=== PATIENT | female | born 2000 | race Caucasian/White ===

== ENCOUNTER 2023-02-13 22:41 | Outpatient (REF) | payer BC, SELFPAY ==
[2023-02-17 15:09] LABS: Age Gdln ACOG Testing Note (.); IGP, rfx Aptima HPV ASCU Note (.)
== END 2023-02-13 22:42 | disposition home or self-care (01) ==
LOC: LAB 22:41
PROVIDERS: Visit Provider Obstetrics & Gynecology
DX: Z01.419 Encounter for gynecological examination (general) (routine) without abnormal findings (principal)
CPT/HCPCS: G0145

== ENCOUNTER 2024-02-21 20:23 | Outpatient (REF) | payer BC, SELFPAY ==
--- OUTSIDE RECORDS SUMMARY | 2024-02-21 20:28 | XMS_ITS | CCD ---
Author Organization [facility] Care Team Providers Care Lens Cutter Name Role Phone Argelia Klein Unavailable DR ELVIRA WALLER Admitting Unavailable DR ELVIRA WALLER Attending Unavailable DR ELVIRA WALLER Consulting Unavailable Salud Russ Unavailable ELVIRA WALLER DEE Referring Unavailable AURORA FERNÁNDEZ Primary Care Unavailable Delon Stockton MD Primary Care Provider ELVIRA WALLER Attending Unavailable HALEY STRONG Attending Unavailable HALEY STRONG Attending Unavailable HALEY STRONG Attending Unavailable HALEY STRONG Attending Unavailable Medications Current Medications Medication Drug Class(es) Dates Sig (Normalized) Sig (Original) adapalene 0.001 mg/mg / benzoyl peroxide 0.025 mg/mg topical gel (3 sources) Retinoid Start: 02-13-2023 End: 02-13-2024 Adapalene-Benzoyl Peroxide (Epiduo) 0.1-2.5 % gel Indications: Well woman exam with routine gynecological exam , Other acne Apply 1 application topically at bedtime 45 g 3 02/13/2023 02/13/2024 Active clindamycin 0.01 mg/mg topical gel (8 sources) Lincosamide Antibacterial Start: 09-25-2023 End: 01-19-2024 clindamycin (Clindagel) 1 % gel Indications: Acne vulgaris Apply thin layer to face, once daily in the morning 60 g 11 01/19/2024 Active dextromethorphan hydrobromide 15 mg / guaiFENesin 400 mg / pseudoephedrine hydrochloride 60 mg oral tablet (1 source) alpha-Adrenergic Agonist, Uncompetitive Q-hpsdmm-X-aspartat e Receptor Antagonist, Sigma-1 Agonist Start: 08-15-2022 take 4 tablets by mouth every twenty-four hours as needed Capmist DM 60-15-400 MG as needed Orally every 4-6 hours as needed, max 4 tablets in 24 hours for 5 days Aug, Active fluticasone propionate 0.05 mg/actuat metered dose nasal spray (3 sources) Corticosteroid Start: 12-13-2018 take 1 spray(s) nasal route once daily Flonase Allergy Relief 50 MCG/ACT 1 spray in each nostril Nasally Once a day for 14 days Aug, Active spironolactone 50 mg oral tablet (11 sources) Aldosterone Antagonist Start: 12-04-2023 End: 01-19-2024 take 1 tablet by mouth once daily spironolactone (Aldactone) 50 MG tablet Indications: Acne vulgaris Take 1 tablet (50 mg) by mouth Daily 30 tablet 1 01/19/2024 Active Start: 09-25-2023 End: 01-19-2024 take 1 tablet by mouth once daily spironolactone (Aldactone) 100 MG tablet Indications: Acne vulgaris Take 1 tablet, by mouth, once daily, 30 days 30 tablet 3 09/25/2023 01/19/2024 Discontinued (Dose adjustment) triamcinolone acetonide 1 mg/ml topical cream (5 sources) Corticosteroid Start: 01-19-2024 triamcinolone (Kenalog) 0.1 % cream Indications: Other specified dermatitis Apply to affected areas, up to twice a day when flared, do not use one the face, groin, or underarms, 30 day supply 80 g 11 01/19/2024 Active Completed/Discontinued Medications Medication Drug Class(es) Dates Sig (Normalized) Sig (Original) acetaminophen 300 mg / codeine phosphate 30 mg oral tablet (1 source) Opioid Agonist Acetaminophen-Co de ine 300-30 MG take 1 tablet by mouth every 4 to 6 hours if needed for pain for 7 days Oral for 3 Days Not-Taking amoxicillin 875 mg oral tablet (2 sources) Penicillin-class Antibacterial Start: 12-13-2018 take 1 tablet by mouth every twelve hours Amoxicillin 875 MG 1 tablet Orally Twice a day for 10 day(s) Dec, Not-Taking Ethinyl Estradiol / norgestimate (2 sources) Progestin, Estrogen Ortho Tri-Cy clen Lo Not-Taking ibuprofen 600 mg oral tablet (1 source) Nonsteroidal Anti-inflammatory Drug take 1 tablet by mouth every six hours for pain Ibuprofen 600 MG take 1 tablet by mouth every 6 hours if needed for pain Oral for 7 Days Not-Taking RA Pain Relief Acetaminophen 500 MG (1 source) RA Pain Relief Acetaminophen 500 MG take 1 CAPLET every 6 hours if needed for pain Oral for 7 Days Not-Taking triazolam 0.25 mg oral tablet (1 source) Benzodiazepine take 1 tablet by mouth every hour Triazolam 0.25 MG take 1 tablet by mouth 1 hour prior to appointment Oral for 1 Days Not-Taking Problems Active Problems Problem Classification Problem Date Documented Date Episodic/Chronic Allergic reactions (2 sources) Eczema; Translations: [Other specified dermatitis] 01-19-2024 Episodic Immunizations and screening for infectious disease (2 sources) Contact with and (suspected) exposure to other viral communicable diseases; Translations: [Encounter for screening for human papillomavirus (HPV)] Onset: 01-20-2021 Resolved: 01-20-2021 Episodic Other endocrine disorders (2 sources) Endocrine disorder, unspecified; Translations: [Endocrine disorder, unspecified] Onset: 12-12-2022 Episodic Other screening for suspected conditions (not mental disorders or infectious disease) (4 sources) Encounter for screening for malignant neoplasm of cervix; Translations: [ENC SCREENING MALIG NEOPLASM CERV] Onset: 12-27-2021 Episodic Other skin disorders (2 sources) Acne vulgaris; Translations: [Acne vulgaris] 01-19-2024 Episodic Other upper respiratory infections (3 sources) Acute upper respiratory infection, unspecified; Translations: [Acute pharyngitis, unspecified] Onset: 01-20-2021 Resolved: 01-20-2021 Episodic Past or Other Problems Problem Classification Problem Date Documented Da te Episodic/Chronic Unclassified (1 source) Contact with and (suspected) exposure to covid-19 Z20.822 Results Test Name Value Interpretation Reference Range Facility Cytology Cervical or vaginal smear or scraping studyOrdered By: Ary Velasquez on 02-13-2023 [facility] E[facility] 12-13-2022 Estradiol 58.0 pg/mL Normal [facility] Comment on above: Result Comment: FEMALES: Normally menstruating Luteal phase 60-232 Follicular phase 31-90 Midcycle phase 60-533 Postmenopausal (untreated) <138 Fulvestrant treatment will show an increased estradiol concentration with this methodology. Alternate methodologies are available upon request. Performed By: #### F T4, PROG, E2 #### [address] [address] Audio/Visual Operator: Arturo Gibbs MD #### TSH, CDP #### [address] [place], [place] [id number] Audio/Visual Operator: Lj Rivers MD Progesteroneon 319 Progesterone 1.28 ng/mL Normal [facility] Comment on above: Result Comment: Female: Follicular phase <0.19 ng/mL Ovulation phase 0.06-4.14 ng/mL Luteal phase 4.11-14.5 ng/mL Postmenopausal <0.13 ng/mL Performed By: #### F T4, PROG, E2 #### [address] [address] Audio/Visual Operator: Arturo Gibbs MD #### TSH, CDP #### [address] [place] [address] Audio/Visual Operator: Lj Rivers MD Thyroxine, Freeon 12-13-2022 Thyroxine, Free 1.0 ng/dL Normal 0.93-1.70 [facility] Comment on above: Performed By: #### F T4, PROG, E2 #### [address] [address] Audio/Visual Operator: Arturo Gibbs MD #### TSH, CDP #### [address] [place] [address] Audio/Visual Operator: Lj Rivers MD CBC with Diffon 12-12-2022 Abs. Basophil <0.03 Normal 0.00-0.20 [facility] Comment on above: Performed By: #### F T4, PROG, E2 #### [address] [address] Audio/Visual Operator: Arturo Gibbs MD #### TSH, CDP #### [address] [place] [id number] Audio/Visual Operator: Lj Rivers MD Abs.Imm.Granulocyte <0.03 Normal 0.00-0.30 [facility] Comment on above: Performed By: #### F T4, PROG, E2 #### [address] [id number] Audio/Visual Operator: Arturo Gibbs MD #### TSH, CDP #### [address] [place] [id number] Audio/Visual Operator: Lj Rivers MD Abs.Neutrophil (Seg) 3.80 k/uL Normal 1.50-8.10 [facility] Comment on above: Performed By: #### F T4, PROG, E2 #### [address] [id number] Audio/Visual Operator: Arturo Gibbs MD #### TSH, CDP #### [address] [place] [phone] Audio/Visual Operator: Lj Rivers MD Basophils/100 WBC (Bld) 0 % Normal 0-2 [facility] Comment on above: Performed By: #### F T4, PROG, E2 #### [address] [id number] Audio/Visual Operator: Arturo Gibbs MD #### TSH, CDP #### [address] [place] [id number] Audio/Visual Operator: Lj Rivers MD Eosinophils (Bld) [#/Vol] 0.17 10*3/uL Normal 0.00-0.44 [facility] Comment on above: Performed By: #### F T4, PROG, E2 #### [address] [address] Audio/Visual Operator: Arturo Gibbs MD #### TSH, CDP #### [address] [place], [place] [phone] Audio/Visual Operator: Lj Rivers MD Eosinophils/100 WBC (Bld) 3 % Normal 1-4 [facility] Comment on above: Performed By: #### F T4, PROG, E2 #### [address] [id number] Audio/Visual Operator: Arturo Gibbs MD #### TSH, CDP #### [address] [place], [place] [phone] Audio/Visual Operator: Lj Rivers MD Erythrocyte distribution width (RBC) [Ratio] 11.8 % Normal 11.8-14.4 [facility] Comment on above: Performed By: #### F T4, PROG, E2 #### [address] [id number] Audio/Visual Operator: Arturo Gibbs MD #### TSH, CDP #### [address] [place] [address] Audio/Visual Operator: Lj Rivers MD Hematocrit (Bld) [Volume fraction] 36.4 % Normal 36.3-47.1 [facility] Comment on above: Performed By: #### F T4, PROG, E2 #### [address] [id number] Audio/Visual Operator: Arturo Gibbs MD #### TSH, CDP #### [address] [place] [address] Audio/Visual Operator: Lj Rivers MD Hemoglobin (Bld) [Mass/Vol] 12.2 g/dL Normal 11.9-15.1 [facility] Comment on above: Performed By: #### F T4, PROG, E2 #### [address] [id number] Audio/Visual Operator: Arturo Gibbs MD #### TSH, CDP #### [facility] [address] [place], [place] [id number] Audio/Visual Operator: Lj Rivers MD Immature granulocytes/100 WBC (Bld) 0 % Normal 0 [facility] Comment on above: Performed By: #### F T4, PROG, E2 #### [address] [address] Audio/Visual Operator: Arturo Gibbs MD #### TSH, CDP #### [facility] [address] [place], [place] [phone] Audio/Visual Operator: Lj Rivers MD Lymphocytes (Bld) [#/Vol] 2.20 10*3/uL Normal 1.10-3.70 [facility] Comment on above: Performed By: #### F T4, PROG, E2 #### [address] [address] Audio/Visual Operator: Arturo Gibbs MD #### TSH, CDP #### [address] [place] [id number] Audio/Visual Operator: Lj Rivers MD Lymphocytes/100 WBC (Bld) 33 % Normal 24-43 [facility] Comment on above: Performed By: #### F T4, PROG, E2 #### [address] [address] Audio/Visual Operator: Arturo Gibbs MD #### TSH, CDP #### [address] [place] [id number] Audio/Visual Operator: Lj Rivers MD MCH (RBC) [Entitic mass] 31.2 pg Normal 25.2-33.5 [facility] Comment on above: Performed By: #### F T4, PROG, E2 #### [address] [address] Audio/Visual Operator: Arturo Gibbs MD #### TSH, CDP #### [address] [place] [phone] Audio/Visual Operator: Lj Rivers MD MCHC (RBC) [Mass/Vol] 33.5 g/dL Normal 28.4-34.8 [facility] Comment on above: Performed By: #### F T4, PROG, E2 #### [address] [address] Audio/Visual Operator: Arturo Gibbs MD #### TSH, CDP #### [address] [place] [phone] Audio/Visual Operator: Lj Rivers MD MCV (RBC) [Entitic vol] 93.1 fL Normal 82.6-102.9 [facility] Comment on above: Performed By: #### F T4, PROG, E2 #### [address] [id number] Audio/Visual Operator: Arturo Gibbs MD #### TSH, CDP #### [address] [place] [id number] Audio/Visual Operator: Lj Rivers MD Monocytes (Bld) [#/Vol] 0.49 10*3/uL Normal 0.10-1.20 [facility] Comment on above: Performed By: #### F T4, PROG, E2 #### [address] [address] Audio/Visual Operator: Arturo Gibbs MD #### TSH, CDP #### [address] [place] [phone] Audio/Visual Operator: Lj Rivers MD Monocytes/100 WBC (Bld) 7 % Normal 3-12 [facility] Comment on above: Performed By: #### F T4, PROG, E2 #### [address] [address] Audio/Visual Operator: Arturo Gibbs MD #### TSH, CDP #### [address] [place], [place] [address]3 Audio/Visual Operator: Lj Rivers MD Neutrophil (Seg) 57 % Normal 36-65 [facility] Comment on above: Performed By: #### F T4, PROG, E2 #### [address] [address] Audio/Visual Operator: Arturo Gibbs MD #### TSH, CDP #### [address] [place] [address] Audio/Visual Operator: Lj Rivers MD NRBC Automated 0.0 per 100 WBC Normal 0.0 [facility] Comment on above: Performed By: #### F T4, PROG, E2 #### [address] [address] Audio/Visual Operator: Arturo Gibbs MD #### TSH, CDP #### [address] [place] [address] Audio/Visual Operator: Lj Rivers MD Platelet mean volume (Bld) [Entitic vol] 10.4 fL Normal 8.1-13.5 [facility] Comment on above: Performed By: #### F T4, PROG, E2 #### [address] [address] Audio/Visual Operator: Arturo Gibbs MD #### TSH, CDP #### [address] [place], [place] [phone] Audio/Visual Operator: Lj Rivers MD Platelets (Bld) [#/Vol] 218 10*3/uL Normal 138-453 [facility] Comment on above: Performed By: #### F T4, PROG, E2 #### [address] [address] Audio/Visual Operator: Arturo Gibbs MD #### TSH, CDP #### [address] [place] [address] Audio/Visual Operator: Lj Rivers MD RBC (Bld) [#/Vol] 3.91 10*6/uL Low 3.95-5.11 [facility] Comment on above: Performed By: #### F T4, PROG, E2 #### [address] [id number] Audio/Visual Operator: Arturo Gibbs MD #### TSH, CDP #### [facility] [address] [place] [address] [place] [address] Audio/Visual Operator: Lj Rivers MD WBC (Bld) [#/Vol] 6.7 10*3/uL Normal 3.5-11.3 [facility] Comment on above: Performed By: #### F T4, PROG, E2 #### [address] [id number] Audio/Visual Operator: Arturo Gibbs MD #### TSH, CDP #### [address] [place] [address] Audio/Visual Operator: Lj Rivers MD Thyroid Stim. Horm.on 2022 Thyroid Stim. Horm. 3.28 uIU/mL Normal 0.30-5.00 [facility] Comment on above: Performed By: #### F T4, PROG, E2 #### [address] [id number] Audio/Visual Operator: Arturo Gibbs MD #### TSH, CDP #### [facility] [address] [place] [address] [place] [address] Audio/Visual Operator: Lj Rivers MD COVID Quick Testingon 2022 Result Negative [facility] Other Quick Strepon 08-15-2022 S. pyogenes Org specific cx Ql (Throat) Negative [facility] Other Quick Strep [facility] Other PAP ACOG PANEL 2: 21 to 29on 01-05-2022 . . Normal [facility] Comment on above: Performed By: #### 4 [id number] #### [facility] [address] [place] [address] Bahena Age Gdln ACOG Testing - [facility] Comment on above: Performed By: #### 4 [id number] #### [facility] [address] [place] [address] Bahena DIAGNOSIS: Comment [facility] Comment on above: Result Comment: NEGA TIVE FOR INTRAEPITHELIAL LESION OR MALIGNANCY. Performed By: #### 4 [id number] #### [facility] [address] [place] [address] Bahena Methodology: Comment [facility] Comment on above: Result Comment: This liquid based ThinPrep(R) pap test was screened with the use of an image guided system. Performed By: #### 4 [id number] #### [facility] [address] [place] [address] Bahena Note: Comment [facility] Comment on above: Result Comment: The Pap smear is a screening test designed to aid in the detection of premalignant and malignant conditions of the uterine cervix. It is not a diagnostic procedure and should not be used as the sole means of detecting cervical cancer. Both false-positive and false-negative reports do occur. . Performed By: #### 4 [id number] #### [facility] [address] [place] [address] Bahena Performed by: Comment Normal [facility] Comment on above: Result Comment: Yancy Lew, Energy Manager (ASCP) Performed By: #### 4 [id number] #### [facility] [address] [place] [address] Bahena Reflex Criteria: Comment [facility] Comment on above: Result Comment: The HPV DNA reflex criteria were not met with this specimen result therefore, no HPV testing was performed. . Performed By: #### 4 [id number] #### [facility] [address] [place] [address] Bahena Specimen adequacy: Comment Normal [facility] Comment on above: Result Comment: Sati sfactory for evaluation. Endocervical and/or squamous metaplastic cells (endocervical component) are present. Performed By: #### 4 [id number] #### [facility] [address] [place] [address] Bahena COVID Quick Testingon 2020 Result Negative [facility] Other Vital Signs Date Time Vital Sign Value Performing Clinician Facility 02-21-2024 16:27-0500 Body mass index (BMI) [Ratio] 22.68 kg/m2 Elvira Sridhar DO Work Phone: [facility] 02-21-2024 16:27-0500 Body weight 65.68 kg Elvira Sridhar DO Work Phone: [facility] 02-21-2024 16:27-0500 Diastolic blood pressure 68 mm[Hg] Elvira Sridhar DO Work Phone: [facility] 02-21-2024 16:27-0500 Systolic blood pressure 106 mm[Hg] Elvira Sridhar DO Work Phone: [facility] 08-15-2022 17:30-0400 Body height 165.1 cm Salud Russ Other [facility] Other 08-15-2022 17:30-0400 Body mass index (BMI) [Ratio] 24.13 kg/m2 Salud Russ Other [facility] Other 08-15-2022 17:30-0400 Body temperature 98.8 [degF] Salud Russ Other [facility] Other 08-15-2022 17:30-0400 Body weight 65.77 kg Salud Russ Other [facility] Other 08-15-2022 17:30-0400 Respiratory rate 18 /min Salud Russ Other [facility] Other 08-15-2022 17:30-0400 SaO2% (BldA) [Mass fraction] 99 % Salud Russ Other [facility] Other 01-20-2021 18:15-0500 Body height 170.18 cm Argelia Klein Other [facility] Other 01-20-2021 18:15-0500 Body mass index (BMI) [Ratio] 23.49 kg/m2 Argelia Merrittmond Other [facility] Other 01-20-2021 18:15-0500 Body temperature 97.8 [degF] Argelia Klein Other [facility] Other 01-20-2021 18:15-0500 Body weight 68.04 kg Argelia Klein Other [facility] Other 01-20-2021 18:15-0500 Respiratory rate 18 /min Argelia Klein Other [facility] Other 01-20-2021 18:15-0500 SaO2% (BldA) [Mass fraction] 98 % Argelia Klein Other [facility] Other Encounters Encounter Date Encounter Type Care Provider Facility Start: 02-21-2024 End: 02-21-2024 Patient encounter procedure Elvira Alcocero DO Work Phone: [facility] Work Phone: Start: 02-21-2024 End: 02-21-2024 Periodic preventive med est patient 18-39 yrs Elvira Alcocero DO Work Phone: [facility] Comment on above: Well woman exam with routine gynecological exam Start: 02-21-2024 End: 02-21-2024 Bamboo flowsheet Elvira Sridhar DO Work Phone: [facility] Start: 02-21-2024 End: 02-21-2024 Bamboo flowsheet Elvira Sridhar DO Work Phone: [facility] Start: 01-19-2024 End: 01-19-2024 Bamboo flowsheet Haley L Tae PA Work Phone: [facility] Start: 01-19-2024 End: 01-19-2024 Bamboo flowsheet Haley L Tae PA Work Phone: [facility] Start: 01-19-2024 End: 01-19-2024 Office outpatient visit 15 minutes Haley L Tae PA Work Phone: [facility] Comment on above: Acne vulgaris (Prima ry Dx); Other specified dermatitis Start: 01-19-2024 End: 01-19-2024 ambulatory HALEY L TAE Not Available Start: 09-25-2023 End: 09-25-2023 ambulatory HALEY L TAE Not Available Start: 06-26-2023 End: 06-26-2023 ambulatory HALEY L TAE Not Available Start: 03-28-2023 End: 03-28-2023 ambulatory HALEY L TAE Not Available Start: 02-13-2023 End: 02-13-2023 ambulatory ELVIRA WALLER Not Available Start: 12-12-2022 End: 12-13-2022 ambulatory [facility]ALL[facility] Start: 08-15-2022 End: 08-15-2022 ambulatory Salud Russ Other [facility] Other Start: 08-15-2022 Office outpatient vi sit 25 minutes Salud Russ [facility] Start: 12-27-2021 End: 12-27-[address] ELVIRA WALLER Facility: Start: 01-20-2021 End: 01-20-2021 ambulatory Argelia Klein Other [facility] Other Start: 01-20-2021 Office outpatient vi sit 15 minutes Argelia Klein [facility] Procedures Date Procedure Procedure Detail Performing Clinician Start: 02-13-2023 Cytp cerv/vag auto t hin layer prep mnl screen Elvira Waller DO Work Phone: Plan of Treatment Date Care Activity Detail Author Start: 01-21-2025 End: 01-21-2025 Patient encounter procedure 01/21/2025 7:40 AM EST Office Visit [facility] [address] [place] [address] Haley Strong PA [address] [place], [place] [id number] [facility] Start: 02-21-2024 End: 02-21-2024 Patient encounter procedure 02/21/2024 4:00 PM EST Office Visit [facility] [address] [place] [address] Elvira Waller, DO [address] [place] [address] [facility] Start: 01-19-2024 End: 01-19-2024 Patient encounter procedure 01/19/2024 7:50 AM EST Office Visit [facility] [address] [place] [address] Haley Strong PA [address] [place] [address] Arrived [facility] Comment on above: Arrived Cytology Cervical or vaginal smear or scraping study Pap Smear Pathology and Cytology Routine Well woman exam with routine gynecological exam Ordered: 02/21/2024 [facility] Work Phone: Comment on above: Ordered: 02/21/2024 Payers Date P[facility] Category [id number] 2000 Unknown [id number] [id number] 2000 Unknown [id number] 2.9 2000 Unknown [id number] [id number] 2000 Unknown [id number] 2.9 2000 Unknown [id number] [id number] 2000 Unknown [id number] [id number] 1978 Unknown [id number] [id number] 1959 [facility] CBKAN [id number] Social History Date Type Detail Facility Unknown if ever smoked [facility] Other Start: 09-25-2023 End: 01-19-2024 Sex Assigned At [place] [facility] Other Start: 03-28-2023 Tobacco smoking status VTIS Never smoked tobacco [facility] Start: 03-28-2023 Tobacco use and exposure Smokeless tobacco non-user [facility] Start: 09-25-2023 End: 01-19-2024 History of Social function [facility] Start: 2000 Sex assigned at Not on file [facility] History of Present illness Narrative 02-21-2024 IRINA Moy - 02/21/2024 4:00 PM EST Note Date & Type Note Facility 02-21-2024 History of Presen t illness Narrative Images from the original note were not included. Reason for Appointment: Patient ID: Eulalia Tobias is a 23 y.o. female who presents for Well Women Visit Patient presents today for Annual Exam. MEDICATIONS Current Outpatient Medications Medication Instructions clindamycin (Clindagel) 1 % gel Apply thin layer to face, once daily in the morning spironolactone (ALDACTONE) 50 mg, Oral, Daily triamcinolone (Kenalog) 0.1 % cream Apply to affected areas, up to twice a day when flared, do not use one the face, groin, or underarms, 30 day supply ALLERGIES No Known Allergies PROBLEMS Active Ambulatory Problems Diagnosis Date Noted No Active Ambulatory Problems Resolved Ambulatory Problems Diagnosis Date Noted No Resolved Ambulatory Problems No Additional Past Medical History HISTORY PAST MEDICAL HISTORY SOCIAL HISTORY No past medical history on file. Social History Tobacco Use Smoking status: Never Smokeless tobacco: Never Substance Use Topics Alcohol use: Not on file Drug use: Not on file FAMILY HISTORY No family history on file. SURGICAL HISTORY Past Surgical History: Procedure Laterality Date WISDOM TOOTH EXTRACTION wisdom teeth REVIEW OF SYSTEMS Review of Systems: Review of Systems Constitutional: Negative. HENT: Negative. Eyes: Negative. Respiratory: Negative. Cardiovascular: Negative. Gastrointestinal: Negative. Genitourinary: Negative. Musculoskeletal: Negative. Skin: Negative. Neurological: Negative. All other systems reviewed and are negative. Hematological: Negative. Endocrine: Negative. Allergic/Immunologic: Negative. OBJECTIVE Objective: Physical Exam Constitutional: Appearance: Normal appearance. Genitourinary: Genitourinary Comments: Fibrocystic changes, eczema bilaterl breast Right Adnexa: not tender and no mass present. Left Adnexa: not tender and no mass present. No cervical discharge. Breasts: Breasts are soft. Right: Skin change present. Left: Skin change present. HENT: Head: Normocephalic. Nose: Nose normal. Mouth/Throat: Mouth: Mucous membranes are moist. Cardiovascular: Rate and Rhythm: Normal rate. Pulmonary: Effort: Pulmonary effort is normal. Chest: Abdominal: General: Bowel sounds are normal. Palpations: Abdomen is soft. Musculoskeletal: General: Normal range of motion. Cervical back: Normal range of motion. Neurological: General: No focal deficit present. Mental Status: She is alert. Skin: General: Skin is warm and dry. Psychiatric: Mood and Affect: Mood normal. Vitals and nursing note reviewed. Exam conducted with a ux developer designer present. Vitals: Estimated body mass index is 22.68 kg/m as calculated from the following: Height as of 11/21/22: 5' 7 . Weight as of this encounter: 144 lb 12.8 oz. BP: 106/68 Patient's last menstrual period was 02/17/2024. ASSESSMENT & PLAN ICD-10-CM 1. Well woman exam with routine gynecological exam Z01.419 Pap Smear Annual Exam: Patient presents today for an annual exam. Patient states she is doing well and has no complaints. Pap was obtained without difficulty. No orders of the defined types were placed in this encounter. Follow Up: Patient is to return in one year for annual unless needed otherwise. Documented by IRINA Moy on behalf of: Elvira Waller DO documented in this encounter [facility] History of Present illness Narrative 01-19-2024 IRINA Garnett - 01/19/2024 7:50 AM EST Note Date & Type Note Facility 01-19-2024 History of Presen t illness Narrative Images from the original note were not included. Follow up Diagnosis: Acne Location: face Last visit: 4 months Symptoms: none Status: improved Current treatment: Spironolactone 50 mg daily (Started 04/01), Clindamycin gel Other Problem: itching , dry spot Location: right abdomen Duration: months Current treatment: Moisturizers All pertinent medical history, medications, and allergies were reviewed. General Exam: alert, oriented to person, place, and time, normal affect, well appearing Unaccompanied A focused exam completed based on patient reported problems, see below: 1. Acne vulgaris Head - Anterior (Face) Very mild, scattered comedones and inflammatory pustules. Improved since last visit Continue current treatment plan at this time. Patient may call for 100 mg dose of spironolactone if she starts to flare. Related Medications clindamycin (Clindagel) 1 % gel Apply thin layer to face, once daily in the morning spironolactone (Aldactone) 50 MG tablet Take 1 tablet (50 mg) by mouth Daily 2. Other specified dermatitis Right Abdomen (side) - Upper Single, small scaly erythematous plaque. Flaring today Discussed that atopic dermatitis is a chronic condition that can be controlled but not cured. Start TAC 0.1% cream bid prn when flared, hold if smooth/asymptomatic. Encouraged daily moisturizing and gentle cleansers to prevent flares. triamcinolone (Kenalog) 0.1 % cream - Right Abdomen (side) - Upper Apply to affected areas, up to twice a day when flared, do not use one the face, groin, or underarms, 30 day supply Next Visit: 1 year documented in this encounter [facility] Evaluation note 08-15-2022 Note Date & Type Note Facility 08-15-2022 Evaluation note Encounter Date Diagnosis Assessment Notes Aug, Sore throat (ICD-10 - J02.9) Aug, Viral upper respiratory infection (ICD-10 - J06.9) Advised patient that rapid COVID/Influenza A/B test and rapid Strep test was negative today. Advised patient that will treat as viral URI. Supportive care as directed, increase fluids and rest, Tylenol/Motrin as directed, rx of Capmist and Flonase, cool mist humidifier, throat lozenges. Discussed infection control practices such as good hand washing and mask wearing. Patient to follow up with PCP if symptoms persist or worsen despite treatment. Immediate eval for SOB, difficulty breathing, chest pain, fevers that do not break with antipyretic or any other concerning symptoms as reviewed on patient education handout. Patient verbalizes understanding and is agreeable to treatment plan. Patient left in stable condition Aug, Contact with and (suspected) exposure to covid-19 (ICD-10 - Z20.822) 2nd Watch Other Evaluation note 01-20-2021 Note Date & Type Note Facility 01-20-2021 Evaluation note Encounter Date Diagnosis Assessment Notes Jan, Contact with and (suspected) exposure to other viral communicable diseases (ICD-10 - Z20.828) Jan, Viral upper respiratory illness (ICD-10 - J06.9) Drink plenty fluids, get plenty of rest. Take Tylenol or Motrin as needed for aches pains or fevers. Follow-up with your family physician if no improvement in 2 to 3 days. Jan, Other Additional time spent conducting pre-visit phone call, screening for symptoms, instructions on social distancing, application and removal of PPE, and cleaning of examination room, equipment and supplies was preformed. Patient education given for testing methodology and results. Patient care instructions given in writting by [facility] document. 2nd Watch Other Evaluation note Note Date & Type Note Facility Evaluation note Diagnosis Acne vulgaris- Primary Other acne Other specified dermatitis documented in this encounter [facility] Evaluation note Note Date & Type Note Facility Evaluation note Diagnosis Well woman exam with routine gynecological exam Routine gynecological examination documented in this encounter [facility] History general Narrative - Reported Note Date & Type Note Facility History general Narrative - Reported Type Surgical History wisdom teeth 2nd Watch Other Summary Purpose Family History No Family History Records FoundNo Family History Records FoundNo Family History Records Found Advance Directives No Advanced Directives Records FoundNo Advanced Directives Records FoundNo Advanced Directives Records Found Additional Source Comments REASON FOR VISIT (unrecogniz ed section and content) Reason Comments Acne Reason Comments Well Women Visit INFORMATION SOURCE (unrecogn ized section and content) DATE CREATED AUTHOR 01/06/2022 [facility] DATE CREATED AUTHOR AUTHOR'S ORGANIZ ATION 12/13/2022 [facility] DATE CREATED AUTHOR AUTHOR'S ORGANIZ ATION 01/21/2024 [facility] EPIC Care Teams (unrecognized sec tion and content) Lens Cutter Relationship Specialty Start Date End Date Delon Stockton MD [address] [place] [address] PCP - General Internal Medicine 11/21/22 Lens Cutter Relationship Specialty Start Date End Date Delon Stockton MD [address] [id number] PCP - General Internal Medicine 11/21/22 Lens Cutter Relationship Specialty Start Date End Date Delon Stockton MD [address] [place] [address] PCP - General Internal Medicine 11/21/22 Lens Cutter Relationship Specialty Start Date End Date Delno Stockton MD [address] [place] [address] PCP - General Internal Medicine 11/21/22 FOR RECORDS PERTAINING TO PATIENTS WHO ARE OR HAVE BEEN ENROLLED IN A CHEMICAL DEPENDENCY/SUBSTANCEABUSE PROGRAM, SOME INFORMATION MAY BE OMITTED. This clinical summary was aggregated from multiple sources. Caution should be exercised in using it in the provision of clinical care. This summary normalizes information from multiple sources, and as a consequence, information in this document may materially change the coding, format and clinical context of patient data. In addition, data may be omitted in some cases. CLINICAL DECISIONS SHOULD BE BASED ON THE PRIMARY CLINICAL RECORDS. [facility] [employer] [facility]. provides no warranty or guarantee of the accuracy or completeness of information in this document.
== END 2024-02-21 20:24 | disposition home or self-care (01) ==
LOC: LAB 20:23
PROVIDERS: Visit Provider Physician Assistant
DX: Z01.419 Encounter for gynecological examination (general) (routine) without abnormal findings (principal)
CPT/HCPCS: 88175